=== PATIENT | male | born 1985 | race African-American/Black ===

== ENCOUNTER 2021-04-23 18:11 | Emergency (ER) | payer SELFPAY ==
[~2021-04-23] VITALS: Ht 167.6 cm; Wt 81.8 kg
[~2021-04-23 18:11] MED LIST: FLEXERIL 1010 MG/TAB PO; NORCO 325 MG-51 TAB PO
[2021-04-23 19:58] VITALS: BP 132/86; PULSE 86; TEMP 98.4
== END 2021-04-23 19:58 | disposition home or self-care (01) ==
LOC: COL.ER 18:11
DX: S93.402A Sprain of unspecified ligament of left ankle, initial encounter (principal); X50.1XXA Overexertion from prolonged static or awkward postures, initial encounter; Y99.0 Civilian activity done for income or pay

== ENCOUNTER 2024-04-12 22:58 | Emergency (ER) | payer BC ==
[~2024-04-12] VITALS: Ht 167.6 cm; Wt 83.6 kg
[~2024-04-12 22:58] MED LIST changes: +CLOTRIM ANTIFUNGAL1% TP
[2024-04-12 23:06] VITALS: BP 120/85; TEMP 98.2
[2024-04-12 23:47] VITALS: PULSE 76
== END 2024-04-12 23:47 | disposition home or self-care (01) ==
LOC: COL.ER 22:58
DX: Z48.01 Encounter for change or removal of surgical wound dressing (principal)